=== PATIENT | female | born 1990 | race Hispanic/Latino ===

== ENCOUNTER 2021-12-12 14:43 | Outpatient (CLI) | payer SELFPAY ==
[2021-12-12 16:08] LABS: #Eosinphils 0.1 10x3/uL (0.0-0.5); #Monocytes 0.5 10x3/uL (0.0-1.1); %Basophils 0.8 % (0.0-2.0); %Eosinophils 2.5 % (0.0-6.0); %Lymphocytes 38.6 % (18.0-47.0); %Monocytes 8.9 % (0.0-10.0); Hemoglobin 10.9 g/dL (12.0-15.5); Mean Corpuscular HGB CONC 32.4 g/dL (32.0-36.0); Mean Corpuscular Hemoglobin 26.5 pg (27.0-33.0); Mean Corpuscular Volume 81.8 fl (81.6-98.3); Mean Platelet Volume 10.9 fl (7.4-10.4); Platelet Count 272 10x3/uL (150-450); RBC Distribution Width 15.4 % (11.5-14.5); Red Blood Cell (RBC) Count 4.11 10x6/uL (3.90-5.03); White Blood Cell (WBC) Count 5.3 10x3/uL (3.5-10.5)
[2021-12-12 16:09] LABS: #Neutrophils 2.6 10x3/uL (1.5-8.4); %Neutrophils 49.2 % (40.0-75.0)
[2021-12-12 16:45] LABS: BHCG - Serum Negative (NEGATIVE); Pregs Control Background? CLEAR/WHITE (CLR/WHITE); Pregs Control Bar Appear? YES (CONTROL BAR)
== END 2021-12-12 14:44 | disposition home or self-care (01) ==
LOC: LABBT 14:43
PROVIDERS: ATTEND Surgery
DX: Z01.812 Encounter for preprocedural laboratory examination (principal); N63.20 Unspecified lump in the left breast, unspecified quadrant; Z20.822 Contact with and (suspected) exposure to COVID-19
CPT/HCPCS: 84703; 85025; U0003; U0005

== ENCOUNTER 2021-12-14 06:27 | Day surgery (SDC) | payer OTHER ==
[2021-12-12 10:56] VITALS: BMI 21.1
[2021-12-14] MEDS ORDERED: fentaNYL Citrate/PF 100 MCG/2 ML SYRINGE ONE (06:52)
[2021-12-14] MEDS ORDERED: Meperidine HCl/PF 25 MG/ML VIAL ONE (06:52)
[2021-12-14] MEDS ORDERED: Famotidine/PF 20 mg/2ml Vial ONE (06:52)
[2021-12-14] MEDS ORDERED: Bupivacaine 0.25% HCL 30 ML VIAL ONE (07:34)
[2021-12-14] MEDS ORDERED: Lidocaine 1% w/Epinephrine 1:100K 20 ML VIAL ONE (07:34)
[2021-12-14] MEDS ORDERED: Dexamethasone 20 MG/5 ML VIAL ONE (07:58)
[2021-12-14] MEDS ORDERED: Ketorolac Tromethamine 30 MG/ML VIAL ONE (07:58)
[2021-12-14] MEDS ORDERED: Ondansetron PF 4 MG/2 ML Vial ONE (07:58)
[2021-12-14] MEDS ORDERED: Metoclopramide HCl 10 MG/2 ML VIAL ONE (07:58)
[2021-12-14] MEDS ORDERED: Lidocaine 1% PF 5 ML VIAL ONE (07:58)
[2021-12-14] MEDS ORDERED: PROPOFOL 200 MG/20 ML VIAL ONE (07:58)
[2021-12-14] MEDS ORDERED: CEFAZOLIN 2 GM VIAL ONE (08:01)
[2021-12-14] MEDS ORDERED: Sodium Chloride 0.9% 100 ML ONE (08:01)
[2021-12-14] MEDS ORDERED: HYDROcodone/Acetaminophen 5/325 mg Tablet ONE (09:42)
== END 2021-12-14 10:25 | disposition home or self-care (01) ==
LOC: SDC 06:27
PROVIDERS: ATTEND Surgery
PROC: 0H9U0ZX Drainage of Left Breast, Open Approach, Diagnostic (ICD-10-PCS; principal; 2021-12-14)
DX: N60.22 Fibroadenosis of left breast (principal)
CPT/HCPCS: 88305; J0690; J1100; J1885; J2175; J2405; J2704; J2765; J3490; S0020; S0028

== ENCOUNTER 2021-12-21 15:57 | Emergency (ER) | payer SELFPAY ==
[2021-12-21 17:43] LABS: #Eosinphils 0.1 thou/uL (0.0-0.7); #Lymphocytes 1.8 thou/uL (1.20-3.40); #Monocytes 0.5 thou/uL (0.11-0.59); %Basophils 0.2 % (0.0-1.0); %Eosinophils 1.1 % (0.0-10.0); %Lymphocytes 27.9 % (21.0-51.0); %Neutrophils 62.8 % (42.0-75.0); Hemoglobin 11.4 g/dL (12.0-16.0); Mean Corpuscular HGB CONC 31.9 g/dL (32.0-36.0); Mean Corpuscular Hemoglobin 26.9 pg (27.0-31.0); Mean Corpuscular Volume 84.4 fL (78.0-98.0); Mean Platelet Volume 8.2 fL (7.4-10.4); Platelet Count 246 thou/uL (130-400); Red Blood Cell (RBC) Count 4.24 mill/uL (4.20-5.40); White Blood Cell (WBC) Count 6.4 thou/uL (4.8-10.8)
[2021-12-21 18:01] LABS: ALT (SGPT) 19 U/L (8-55); AST (SGOT) 19 U/L (5-34); Alkaline Phosphatase 95 U/L (40-110); Anion Gap 13 mmol/L (10-20); BUN (Urea Nitrogen) 12 mg/dL (7.0-18.7); Bilirubin, Total 0.5 mg/dL (0.2-1.2); Calc. Creatinine Clearance 0 mL/min (70-130); Calcium 8.6 mg/dL (7.8-10.44); Carbon Dioxide 26 mmol/L (22-29); Chloride 105 mmol/L (98-107); Estimated GFR 120; Globulin 3.3 g/dL (2.4-3.5); Glucose 103 mg/dL (70-105); Potassium 3.8 mmol/L (3.5-5.1); Protein, Total 7.3 g/dL (6.0-8.3); Sodium 140 mmol/L (136-145)
[2021-12-21] MEDS ORDERED: Ondansetron ODT 4 MG TAB ONE (18:25)
[2021-12-21 18:35] LABS: Bacteria/HPF None Seen HPF (None Seen); Bilirubin Negative (Negative); Blood, Urine Negative (Negative); Clarity Clear (Clear); Glucose, Urine (Dipstick) Normal (Negative); Ketone, Urine Negative (Negative); Leukocyte 250 Leu/uL (Negative); Nitrite Negative (Negative); Protein, Urine (Dipstick) Negative (Neg-Trace); RBC/HPF 0-3 HPF (0-3); Specific Gravity, Urine 1.023 (1.002-1.036); Urobilinogen Normal mg/dL (Less than 2)
[2021-12-21 18:37] LABS: Pregnancy Test - Urine (BHCG) Negative (Negative); Pregu Control Background? CLEAR/WHITE (CLR/WHITE); Pregu Control Bar Appear? YES (CONTROL BAR); Specific Gravity 1.023 (1.002-1.036)
== END 2021-12-21 19:08 | disposition home or self-care (01) ==
LOC: ERS 15:57
DX: R11.2 Nausea with vomiting, unspecified (principal); K59.00 Constipation, unspecified
CPT/HCPCS: 36415; 80053; 81003; 81015; 81025; 85025; 99284; Q0162